=== PATIENT | female | born 1985 | race African-American/Black ===

== ENCOUNTER 2018-05-01 00:54 | Emergency (ER) | payer OTHER ==
[2018-05-01 01:04] VITALS: BP 127/97; PULSE 77; TEMP 98.4; BMI 26.6
[2018-05-01] MEDS ORDERED: ALBUTEROL SO4 2.5/IPRATROPIUM 0.5 INH SOL 3 ML VIAL.NEB. NEB ONE ×3 (01:07→01:13)
--- NOTE | 2018-05-01 01:17 | PDOC ---
History of Present Illness - General Chief Complaint: Cold Symptoms Stated Complaint: COLD SYMPTOMS Time Seen by Provider: 05/01/18 01:01 - History of Present Illness Initial Comments: 05/01/18 01:13 Chief complaint: URI symptoms wheezing History of present illness: 33 years old no significant past medical history presents to the emergency department with episode of nasal congestion and difficulty breathing and wheezing this evening. Patient states that she has a recent upper respiratory illness nasal congestion sore throat increased secretions and during the night felt as if she was wheezing. This has happened to her once before does not carry a diagnosis of asthma she is otherwise healthy with no complaints tokes some cough suppressant at home currently feels much better requesting a nebulizer treatment and pump in case it happens again Symptoms were mild and resolved with cough medication and currently patient feels much better. Past History - Past Medical History Allergies/Adverse Reactions: Allergies Allergy/AdvReac Type Severity Reaction Status Date / Time No Known Allergies Allergy Unverified 05/01/18 00:55 Home Medications: Ambulatory Orders Albuterol Sulfate Inhaler - [Ventolin Hfa Inhaler -] 1 - 2 inh PO Q4H #1 inhaler 05/01/18 Hydrochlorothiazide 12.5 mg PO DAILY 05/01/18 Metoprolol Succinate 50 mg PO DAILY 05/01/18 COPD: No HTN: Yes - Suicide/Smoking/Psychosocial Hx Smoking History: Never smoked Review of Systems - Review of Systems Comments:: 05/01/18 01:14 ROS: A complete review of 10 out of 10 review of systems is taken and is negative apart from what is previously mentioned below and in the HPI. *Physical Exam - Vital Signs Last Vital Signs Temp Pulse Resp BP Pulse Ox 98.4 F 77 18 127/97 97 05/01/18 00:58 05/01/18 00:58 05/01/18 00:58 05/01/18 00:58 05/01/18 00:58 - Physical Exam Comments: 05/01/18 01:14 Vitals: Triage Vital signs reviewed General Appearance: no acute distress, well nourished well developed, Head: Atraumatic, Nose: Nares patent bilaterally;no nasal congestion Throat: Posterior oropharynx without erythema, mucous membranes moist, Neck: Supple;No Nucal rigidity Cardiac: Regular rate and rhythym, no murmurs, no rubs, no gallops, Lungs: Clear to auscultation bilateral, good air movement bilaterally, mild bronchospasm with cough Abdomen: Soft, non distended, normal bowel sounds, non tender Extremities: Full range of motion to all extremities, no cyanosis, clubbing, or edema Skin: Warm and dry, no rashes or lesions, no rash, no petechiae Psych: normal mood, normal affect Medical Decision Making - Medical Decision Making 05/01/18 01:15 33 years [place] past medical history presents with URI-type symptoms and brief episode of wheezing this evening improved with [id number] cold and cough medication Requesting nebulizer treatment and Ventolin pump 1 Ventolin neb given in the emergency department patient feels much better she' ll follow-up with her primary care provider this week patient provided with Ventolin home MDI Findings, need for follow-up and strict return instructions discussed with patient. *DC/Admit/Observation/Transfer Diagnosis at time of Disposition: URI (upper respiratory infection) Qualifiers: URI type: unspecified URI Qualified Code(s): J06.9 - Acute upper respiratory infection, unspecified - Discharge Dispostion Disposition: HOME Condition at time of disposition: Stable Decision to Admit order: No - Prescriptions Prescriptions: Albuterol Sulfate Inhaler - [Ventolin Hfa Inhaler -] 1 - 2 inh PO Q4H #1 inhaler - Referrals Referrals: [facility] [place] [Provider Group] - Patient Instructions Printed Discharge Instructions: DI for Viral Upper Respiratory Infection -- Adult Additional Instructions: Use Ventolin metered dose inhaler every 4-6 hours 1-2 puffs as needed for wheezing. Return to ED for any severe worsening symptoms difficulty breathing or for any concerns. - Post Discharge Activity Forms/Work/School Notes: Back to Work
== END 2018-05-01 02:00 | disposition home or self-care (01) ==
LOC: FER 00:54
PROC: 3E0F7GC Introduction of Other Therapeutic Substance into Respiratory Tract, Via Natural or Artificial Opening (ICD-10-PCS; principal; 2018-05-01)
DX: J06.9 Acute upper respiratory infection, unspecified (principal)
CPT/HCPCS: 99281-25; J7620

== ENCOUNTER 2018-05-18 04:34 | Emergency (ER) | payer OTHER ==
[2018-05-18] MEDS ORDERED: ALBUTEROL SO4 2.5/IPRATROPIUM 0.5 INH SOL 3 ML VIAL.NEB. NEB ONE ×3 (04:38→05:56)
[2018-05-18 04:45] VITALS: BMI 28.3
--- NOTE | 2018-05-18 04:59 | PDOC ---
History of Present Illness - General History Source: Patient Exam Limitations: No Limitations - History of Present Illness Initial Comments: 05/18/18 05:33 This is a 33-year-old female who comes in complaining of difficulty breathing. Patient is also noted to have a low-grade fever. Patient said her symptoms started yesterday morning when she woke up with a fever, headache, body aches and cough and said she vomited 1. Patient recently was diagnosed with flu and she took one of his Tamiflu's. Patient said she felt better after that and was fine yesterday and then early this morning woke up with shortness of breath, cough and wheezing. Patient took her albuterol nebulizer and came in for evaluation. Post-arrival in the ED patient did vomit 1 PAST MEDICAL HISTORY: no significant history PAST SURGICAL HISTORY: no significant history FAMILY HISTORY: no pertinant history SOCIAL HISTORY: Pt lives with family and is employed. MEDICATIONS: reviewed ALLERGIES: As per nursing notes ROS General: + fevers or chills, no weakness, no weight loss HEENT: No change in vision. No sore throat,. No ear pain CardioVascular: No chest pain + shortness of breath Respiratory:+ cough, + wheezing. Gastrointestinal: + nausea, + vomiting, diarrhea or constipation, No rectal bleeding Genitourinary: No dysuria, hematuria, or frequency Musculoskeletal: . No joint pain or swelling Neurologic: No headache, vertigo, dizziness or loss of consciousness Psychiatric: nor depression Skin: No rashes or easy bruising Endocrine: no increased thirst or abnormal weight change Allergic: no skin or latex allergy All other systems reviewed and normal Exam: General: Well-nourished well-developed individual, in moderate respiratory distress HEENT: Throat: Normal, tonsils normal, no erythema or exudate Neck: Supple, no meningeal signs, no lymphadenopathy Eyes::Pupils equal reactive and round, extraocular motion intact Chest: Nontender to palpation Cardiac: S1-S2 normal, regular rate and rhythm, no murmurs rubs or gallops Respiratory: Marked decrease in breath sounds right side greater than left with diffuse expiratory wheezing, experatory phase greater than inspiratory phase Abdomen: Soft, nondistended, normal bowel sounds, there is no tenderness on palpation diffusely Extremities: Warm, dry, no cyanosis, clubbing, or edema Skin: No rashes Neuro: Alert and oriented x3, CN II - XII intact, nonfocal exam with normal strength, normal sensation, normal reflexes, normal gait, Psych: Normal mood and affect 06:00 Chest x-ray: no acute infiltrate Reassessment: Patient's air movement is improved however still diffuse wheezing throughout all ortez. 07:00 care of this patient transferred to Dr. Milligan Case discussed in detail with oncoming Emergency Physician including history, physical exam and ancillary studies. Oncoming Emergency Physician has assumed care for the patient and will complete the evaluation and treatment. Patient is aware of the plan. Pt is clinically unchanged and stable. <Samm Mandujano I - Last Filed: 05/18/18 06:38> <Shruthi Milligan - Last Filed: 05/18/18 07:53> - General Chief Complaint: Asthma Stated Complaint: DIFFICULT BREATHING Time Seen by Provider: 05/18/18 04:52 Past History - Past Medical History Asthma: Yes COPD: No HTN: Yes - Suicide/Smoking/Psychosocial Hx Smoking History: Never smoked Have you smoked in the past 12 months: No Number of Cigarettes Smoked Daily: 0 Information on smoking cessation initiated: No Hx Alcohol Use: No Drug/Substance Use Hx: No Substance Use Type: None <Samm Mandujano I - Last Filed: 05/18/18 06:38> <Shruthi Milligan - Last Filed: 05/18/18 07:53> - Past Medical History Allergies/Adverse Reactions: Allergies Allergy/AdvReac Type Severity Reaction Status Date / Time No Known Allergies Allergy Unverified 05/01/18 00:55 Home Medications: Ambulatory Orders Albuterol Sulfate Inhaler - [Ventolin Hfa Inhaler -] 1 - 2 inh PO Q4H #1 inhaler 05/01/18 Hydrochlorothiazide 12.5 mg PO DAILY 05/01/18 Metoprolol Succinate 50 mg PO DAILY 05/01/18 Oseltamivir Phosphate [Tamiflu] 75 mg PO BID #10 capsule 05/18/18 Prednisone 10 mg PO ASDIR #10 tablet 05/18/18 *Physical Exam - Vital Signs Last Vital Signs Temp Pulse Resp BP Pulse Ox 100.2 F H 79 16 143/100 91 L 05/18/18 04:42 05/18/18 04:42 05/18/18 04:42 05/18/18 04:42 05/18/18 04:42 <Samm Mandujano I - Last Filed: 05/18/18 06:38> - Vital Signs Last Vital Signs Temp Pulse Resp BP Pulse Ox 100.2 F H 79 16 143/100 91 L 05/18/18 04:42 05/18/18 04:42 05/18/18 04:42 05/18/18 04:42 05/18/18 04:42 <Shruthi Milligan S - Last Filed: 05/18/18 07:53> ED Treatment Course - LABORATORY CBC & Chemistry Diagram: 05/18/18 05:55 05/18/18 05:55 <Samm Mandujano I - Last Filed: 05/18/18 06:38> - LABORATORY CBC & Chemistry Diagram: 05/18/18 05:55 05/18/18 05:55 - ADDITIONAL ORDERS Additional order review: 05/18/18 05:55 RBC 5.01 MCV 86.9 MCHC 32.7 RDW 14.0 MPV 7.8 Neutrophils % 80.1 Lymphocytes % 9.6 Monocytes % 7.8 Eosinophils % 2.2 Basophils % 0.3 - Medications Given in the ED: ED Medications Discontinued Medications Generic Name Dose Route Start Last Admin Trade Name Crystal PRN Reason Stop Dose Admin Albuterol/Ipratropium 1 amp 05/18/18 05:15 05/18/18 06:49 Duoneb - NEB 05/18/18 06:01 1 amp Q15M JEZ Administration <Shruthi Milligan S - Last Filed: 05/18/18 07:53> Medical Decision Making - Medical Decision Making Received patient from Dr Armijo at shift change Much improved Lungs clearing up Xray negative as read by me 05/18/18 07:35 <Shruthi Milligan S - Last Filed: 05/18/18 07:53> *DC/Admit/Observation/Transfer <Samm Mandujano I - Last Filed: 05/18/18 06:38> - Discharge Dispostion Decision to Admit order: No <Shruthi Milligan S - Last Filed: 05/18/18 07:53> Diagnosis at time of Disposition: URI (upper respiratory infection) Qualifiers: URI type: unspecified viral URI Qualified Code(s): J06.9 - Acute upper respiratory infection, unspecified Asthma Qualifiers: Asthma severity: moderate Asthma persistence: unspecified Asthma complication type: unspecified Qualified Code(s): J45.909 - Unspecified asthma, uncomplicated - Discharge Dispostion Disposition: HOME Condition at time of disposition: Improved - Prescriptions Prescriptions: Oseltamivir Phosphate [Tamiflu] 75 mg PO BID #10 capsule Prednisone 10 mg PO ASDIR #10 tablet - Referrals Referrals: Jarrod Disla MD [Primary Care Provider] - - Patient Instructions Printed Discharge Instructions: Asthma -- Adult, DI for Viral Upper Respiratory Infection -- Adult - Post Discharge Activity Forms/Work/School Notes: Back to Work
[2018-05-18] MEDS: ALBUTEROL SO4 2.5/IPRATROPIUM 0.5 INH SOL 3 ML VIAL.NEB. NEB SCH ×4 (05:16→06:49)
[2018-05-18] MEDS ORDERED: methylPREDNISolone NA SUCC 125 MG/2 ML VIAL ONE (05:18)
[2018-05-18 07:05] LABS: BASO % 0.3 % (0-2.0); EOS % 2.2 % (0-4.5); HEMATOCRIT 43.6 % (32.4-45.2); HEMOGLOBIN 14.2 GM/dL (10.7-15.3); LYMPH % 9.6 % (8-40); MCH 28.4 pg (25.7-33.7); MCHC 32.7 g/dl (32.0-36.0); MEAN CELL VOLUME 86.9 fl (80-96); MEAN PLT VOLUME 7.8 fl (7.5-11.1); MONO % 7.8 % (3.8-10.2); NEUT % 80.1 % (42.8-82.8); PLATELET COUNT 254 K/MM3 (134-434); RBC 5.01 M/mm3 (3.60-5.2); WHITE BLOOD COUNT 8.7 K/mm3 (4.0-10.0)
[2018-05-18 07:51] VITALS: BP 136/101; PULSE 88; TEMP 100
[2018-05-18 09:03] LABS: ALBUMIN 3.6 g/dl (3.4-5.0); ALK PHOS 49 U/L (45-117); ANION GAP 8 MMOL/L (8-16); BILIRUBIN,TOTAL 0.4 mg/dL (0.2-1); BLOOD UREA NITROGEN 15 mg/dL (7-18); CALCIUM 9.4 mg/dL (8.5-10.1); CHLORIDE 102 mmol/L (98-107); CO2 27 mmol/L (21-32); GLUCOSE,RANDOM 117 mg/dL (74-106); POTASSIUM 3.2 mmol/L (3.5-5.1); SGOT/AST 20 U/L (15-37); SGPT/ALT 26 U/L (13-61); SODIUM 137 mmol/L (136-145)
[2018-05-18] MEDS ORDERED: methylPREDNISolone NA SUCC 125 MG/2 ML VIAL IVPUSH SCH (10:00)
== END 2018-05-18 07:57 | disposition home or self-care (01) ==
LOC: FER 04:34
PROC: 3E0F7GC Introduction of Other Therapeutic Substance into Respiratory Tract, Via Natural or Artificial Opening (ICD-10-PCS; principal; 2018-05-18)
DX: J45.909 Unspecified asthma, uncomplicated (principal); J06.9 Acute upper respiratory infection, unspecified; I10 Essential (primary) hypertension
CPT/HCPCS: 36415; 71045-TC-FY; 80053; 85025; 87804; 99283-25; J7620

== ENCOUNTER 2021-05-15 20:14 | Emergency (ER) | payer OTHER ==
[2021-05-15 20:33] VITALS: TEMP 98.9; BMI 29.9
[2021-05-15] MEDS ORDERED: LABETALOL HCL 200 MG TABLET (FP) PO ONE (21:37)
[2021-05-15 21:38] LABS: EOS % 4.2 % (0-4.5); HEMATOCRIT 39.6 % (32.4-45.2); HEMOGLOBIN 13.4 GM/dl (10.7-15.3); LYMPH % 36.4 % (8-40); MCH 29.1 pg (25.7-33.7); MCHC 33.8 g/dl (32.0-36.0); MEAN CELL VOLUME 86.3 fl (80-96); MEAN PLT VOLUME 7.6 fl (7.5-11.1); MONO % 8.9 % (3.8-10.2); NEUT % 49.5 % (42.8-82.8); PLATELET COUNT 309 10^3/uL (134-434); RBC 4.59 M/mm3 (3.60-5.2); RDW 13.9 % (11.6-15.6); WHITE BLOOD COUNT 6.7 K/mm3 (4.0-10.8)
[2021-05-15] MEDS ORDERED: LABETALOL HCL 200 MG TABLET (FP) ONE (21:38)
[2021-05-15 21:56] LABS: ALBUMIN 3.9 g/dl (3.4-5.0); ALK PHOS 51 U/L (45-117); ANION GAP 10 MMOL/L (8-16); BILIRUBIN,TOTAL 0.7 mg/dl (0.2-1); CALCIUM 9.3 mg/dl (8.5-10); CHLORIDE 103 mmol/L (98-107); CO2 26 mmol/L (21-32); CREATININE 1.1 mg/dl (0.55-1.3); GLUCOSE,RANDOM 88 mg/dl (74-106); SGOT/AST 21 U/L (15-37); SGPT/ALT 27 U/L (13-61); SODIUM 139 mmol/L (136-145); TOT PROT 7.1 g/dl (6.4-8.2)
[2021-05-15 23:08] VITALS: BP 166/105; PULSE 84
== END 2021-05-15 23:36 | disposition home or self-care (01) ==
LOC: FER 20:14
DX: L03.039 Cellulitis of unspecified toe (principal); I10 Essential (primary) hypertension
CPT/HCPCS: 36415; 80053; 82550; 82553; 84484; 85025; 93005; 99284-25